=== PATIENT | male | born 1965 | race Caucasian/White ===

== ENCOUNTER 2020-11-15 17:48 | Inpatient (IN) | payer OTHER, SELFPAY ==
[2020-11-15] VITALS (7 sets, daily range): BP systolic 62–132; BP diastolic 31–74; PULSE 73–83; RESP 12–20; TEMP 36.7–36.8; O2SAT 95–100; BMI 32.7
--- NOTE | ~2020-11-15 | CT_ITS ---
EXAMINATION: CT BRAIN W/O DATE: 11/15/2020 19:03 INDICATION: CT dated 01/05/2019 TECHNIQUE: Computed tomography (CT) of the head was performed without intravenous contrast. The dose- length product was 605.33 mGy-cm. Automated exposure control and iterative reconstruction technique w ere employed. COMPARISON: No prior studies for comparison. FINDINGS: Normal brain parenchymal volume for age. Normal chapman-white differentiation. No acute intrac ranial hemorrhage, infarction, mass or mass effect. Study limited by motion artifact. There is cerebe llar atrophy for age. No ventriculomegaly or midline shift. Midline sagittal images demonstrate a normal corpus callosum, c raniovertebral junction and sella turcica. Basilar cisterns are patent. Paranasal sinuses and mastoids are pneumatized. No depressed skull fractures. IMPRESSION: 1. No acute intracranial abnormality. 2: Cerebellar atrophy for age. Reviewed, dictated and finalized at location A.
--- NOTE | ~2020-11-15 | US_ITS ---
EXAMINATION: US renal BI EXAM DATE: 11/16/2020 16:34 INDICATION: Acute kidney insufficiency. TECHNIQUE: Multiple grayscale and Doppler images of the kidneys were obtained (by a technologist who performed the scan) and subsequently reviewed. There is no prior study for comparison. FINDINGS: Right kidney: There is normal contour and echogenicity. It measures 10.0 x 6.4 x 5.0 centimeters. T here are no focal renal lesions identified. There is no hydronephrosis. Left kidney: There is normal contour and echogenicity. It measures 10.1 x 5.6 x 4.9 centimeters. Th ere are no focal renal lesions identified. There is no hydronephrosis. Bladder is collapsed with Webster catheter in position. There is diffuse bladder wall thickening, could indicate chronic cystitis. IMPRESSION: 1. Sonographically unremarkable kidneys. 2. Bladder wall thickening, could indicate chronic cystitis. Webster in position. Reviewed, dictated and finalized at location B. IMPRESSION: 1. Sonographically unremarkable kidneys. 2. Bladder wall thickening, could indicate chronic cystitis. Webster in position .
--- NOTE | ~2020-11-15 | XR_ITS ---
XR chest 1V portable 11/15/2020 18:19 Indication: Weakness. Transient alteration of awareness Procedure: AP portable chest Comparison: 11/03/2018 Findings: Heart size normal. Low lung volumes with crowding of the pulmonary vessels. No focal pneumo ronak, edema, pleural effusion or pneumothorax. Impression: 1: No acute cardiopulmonary disease. Reviewed, dictated and finalized at location A. Impression: 1: No acute cardiopulmonary disease.
--- NOTE | 2020-11-15 18:08 | ECG_ITS ---
Measurements Intervals [place] Rate: 72 P: 63 PA: 178 QRS: 67 QRSD: 123 T: 39 QT: 447 QTc: 490 Interpretive Statements SINUS RHYTHM RIGHT BUNDLE BRANCH BLOCK ST ELEVATION IN DIFFUSE LEADS- PROBABLY EARLY REPOLARIZATION ABNORMALITY BASELINE WANDER- V2 ABNORMAL ECG Electronically Signed On 11-15-2020 20:13:53 CDT by Doron Cabrera D.O.
--- NOTE | 2020-11-15 18:10 | ED.ALCOHOL ---
HPI - Alcohol General Chief Complaint: Alcohol Stated Complaint: ETOH INTOXICATION Time Seen by Provider: 11/15/20 17:52 Source: patient, EMS and RN notes reviewed Mode of arrival: EMS Limitations: intoxication History of Present Illness HPI narrative: This is a 55 year old male with history of bipolar and alcoholism who presents for evaluation of alcohol intoxication. Patient states he has been drinking alcohol today. He states he was walking home but he was unable to make it. HE was found in someone's yard and he was unable to get up. Patient reports he has not eaten in 2 days. He denies headache, chest pain, nausea, vomiting, abdominal pain or sob. He does report weakness. Related Data Home Medications Medication Instructions Recorded Confirmed fluoxetine 40 mg PO DAILY 11/15/20 11/15/20 levothyroxine 100 mcg PO DAILY 11/15/20 11/15/20 lisinopril 20 mg PO DAILY 11/15/20 11/15/20 lithium carbonate 300 mg PO TID 11/15/20 11/15/20 naltrexone 50 mg PO DAILY 11/15/20 11/15/20 nicotine 21 mg TRANSDERMAL DAILY 11/15/20 11/15/20 olanzapine 10 mg PO DAILY 11/15/20 11/15/20 pantoprazole 40 mg PO DAILY 11/15/20 11/15/20 tamsulosin 0.4 mg PO HS 11/15/20 11/15/20 Allergies Allergy/AdvReac Type Severity Reaction Status Date / Time Penicillins Allergy Unknown PATIENT Verified 11/15/20 18:59 UNSURE OF REACTION. Review of Systems Review of Systems: All systems reviewed & are unremarkable except as noted in HPI and below PMFSH Past Medical History Medical History (Updated 11/15/20 @ 21:40 by Karol Chaparro MD) Bipolar disease, chronic Family History Family History Mother Depression Social History Social History (Updated 11/15/20 @ 18:42 by Karol Chaparro MD) Smoking packs per day: 1 Smoking cigarettes per day: 20.0 Years smoked: 30 Smoking pack-years: 30.00 Smoking status: Current every day smoker Tobacco type: cigarettes Alcohol intake: current Drinks per week: 70 Substance use: never Gender identity (if verbalized by the patient): Male Spiritual care concerns: No Exam Const: General: no acute distress and alert Orientation/consciousness: patient oriented x3 HENMT: Head: normocephalic and atraumatic Face and sinus: face symmetric Mouth: Yes lip abnormal (lower lip wound) and Yes other Throat: posterior oropharynx normal, tonsils normal and uvula midline Eyes: Pupils: Equal, round and reactive pupils present EOM: EOMs intact bilaterally Chest: Chest palpation & inspection: normal inspection of the chest Resp: Effort & Inspection: normal respiratory effort and no retractions Auscultation: clear to auscultation bilaterally Cardio: Rate: regular rate Rhythm: regular rhythm Heart sounds: no murmurs GI: GI Palp: Yes Soft to palpation, No Tenderness to palpation present (GI) and No Guarding due to palpation present (GI) Auscultation: normal bowel sounds Skin: General skin exam: normal color Rashes: no rashes Neuro: General: patient oriented x3, moves all extremities and CN's II-XI intact bilaterally Psych: Mental Status: mental status grossly normal Affect: normal affect Course Reevaluation(s) Reevaluation #1: Patient presented with alcohol intoxication and weakness. Patient seems to not have eaten in a couple days and it dehydrated. BP improved after hydration. BP now 102/62. Patient had benavides catheter placed due to acute kidney injury . Nursing staff reports patient was able to urinate 300 ml but bladder scanner showed 500 ml so benavides placed. Date: 11/15/20 Time: 21:35 Consultations Consultation #1: I have discussed case, vitals and labs with DR. Gutierrez. She agrees with management and she accepts patient to IMU. Date: 11/15/20 Time: 21:36 Vital Signs Vital signs: Vital Signs Temperature 98.2 F 11/15/20 18:01 Pulse Rate 80 11/15/20 18:01 Respiratory Rate 12 11/15/20
[2020-11-15] MEDS: SODIUM CHLORIDE 0.9% IV 1,000 ML 999 ML IV CONT ×3 (18:33→20:15)
--- NOTE | 2020-11-15 18:54 | PC.NURSE ---
Dr. Chaparro informed of pts low BP. Fluids started
[2020-11-15 18:59] LABS: Basophils Percent Auto 0.2 % (0.2-1.2); Eosinophils Absolute Auto 0.2 K/mm3 (0-0.3); Eosinophils Percent Auto 1.4 % (0-4.4); Hematocrit 38.4 % (42.0-52.0); Hemoglobin 11.8 g/dL (14.0-18.0); Immature Granulocyte Absolute 0.12 K/mm3 (0.00-0.031); Lymphocytes Absolute Auto 2.39 K/mm3 (0.9-3.2); Lymphocytes Percent Auto 19.9 % (18.3-44.2); Mean Corpuscular HGB Conc 30.7 g/dl (32-36); Mean Corpuscular Hemoglobin 24.5 pg (26-34); Mean Corpuscular Volume 79.8 fl (80-100); Mean Platelet Volume 9.1 fl (7.4-10.4); Monocytes Absolute Auto 0.8 K/mm3 (0.1-0.6); Monocytes Percent Auto 6.7 % (2.6-8.5); Neutrophils Absolute Auto 8.5 K/mm3 (1.3-6.7); Neutrophils Percent Auto 70.8 % (45.5-73.1); Platelet Count Result 347 k/mm3 (150-375); Red Blood Count 4.81 M/mm3 (4.6-6.20); Red Cell Distribution Width 18.4 % (11.5-14.5)
--- NOTE | 2020-11-15 19:03 | PC.NURSE ---
Called pharmacy in regards to pts Thamine bag. Pharmacy in process of making bag.
[2020-11-15 19:08] LABS: Ethanol 201 mg/dL (<10)
[2020-11-15 19:10] LABS: Lactic Acid Reflex 4.5 mmol/L (0.7-2.1)
[2020-11-15] MEDS: THIAMINE HCL INJ 100 MG, FOLIC ACID INJ 1 MG, MULTIVITAMINS-12 INJ VIAL 1 5 ML, MULTIVI... IV CONT (19:14)
[2020-11-15 19:16] LABS: Alanine Aminotransferase 16 U/L (4-50); Albumin Level 4.6 g/dL (3.5-5.1); Alkaline Phosphatase 120 U/L (38-126); Anion Gap 20 mmol/L (8-16); Aspartate Amino Transferase 29 U/L (17-59); Bilirubin,Total 0.4 mg/dL (0.2-1.3); Blood Urea Nitrogen 24 mg/dL (9-20); Calcium 9.5 mg/dL (8.4-10.2); Carbon Dioxide 17 mmol/L (22-30); Chloride 89 mmol/L (98-107); Estimated CRCL calculation 18 ml/min; Estimated Glomerular Filt Rate 16; Glucose 71 mg/dL (75-110); INR 1.1; Magnesium 2.3 mg/dL (1.6-2.3); Potassium 3.9 mmol/L (3.4-5.0); Sodium 126 mmol/L (137-145)
[2020-11-15 19:17] LABS: Partial Thromboplastin Time 29.3 SECONDS (22.3-36.8)
[2020-11-15 20:13] LABS: Lithium 1.6 mmol/L (0.6-1.2)
[2020-11-15 21:11] LABS: Glucose Point of Care 79 mg/dl (65-105)
[2020-11-15] MEDS: SODIUM CHLORIDE 0.9% IV 1,000 ML 125 ML IV CONT (21:44)
[2020-11-15 21:56] LABS: Reflex Lactic Acid Yes or No Add Lactic
[2020-11-15 21:57] LABS: Add Urine Microscopic? YES; Appearance Urine Clear (Clear); Bilirubin Urine Negative (Negative); Blood Urine 1+ (Negative); Color Urine Yellow (Yellow); Glucose Urine UA Negative (Negative); Ketones Urine Negative (Negative); Leukocyte Esterase Ur Negative LEU/UL (Negative); Mucus Urine Rare /lpf; Nitrate Urine Negative (Negative); Protein Urine Negative (Negative); RBC Urine 0-2 /hpf (0-2); Specific Grav Ur 1.006 (1.001-1.035); Urobilinogen Urine Negative mg/dL (<2.0); WBC Urine 0-3 /hpf
[2020-11-15 22:48] LABS: Amphetamine Screen Urine Negative (Negative); Barbiturate Screen Urine Negative (Negative); Benzodiazepines Screen Urine Negative (Negative); Cannabinoid Screen Urine Negative (Negative); Cocaine Screen Urine Negative (Negative); Methadone Screen Urine Negative (Negative); Opiate Screen Urine Negative (Negative); Phencyclidine Screen Urine Negative (Negative)
--- NOTE | 2020-11-15 22:55 | ADMGEN ---
This patient, Jassi Núñez, was admitted to IMU Room 205-01. Patient/family oriented to hospital policies and general routines including ID bracelet, bed and alarms, visiting hours, pain management, procedures, bathroom and other care routines, personal items, smoking policy, room service/diet, and visiting hours. Information on how to activate the Rapid Response Team has been discussed. Patient/Family are encouraged to report perceived risks to care and to ask questions if they do not understand what they are told or what they should do.
[2020-11-15 23:50] LABS: Lactic Acid 2.4 mmol/L (0.7-2.1)
[2020-11-15] MEDS: FAMOTIDINE 20 MG/2 ML VIAL IV PUSH (23:59)
[2020-11-16] VITALS (10 sets, daily range): BP systolic 117–154; BP diastolic 54–87; PULSE 66–82; RESP 16–18; TEMP 36–37.2; O2SAT 92–100
--- NOTE | 2020-11-16 04:40 | PM.IMHP ---
H&P: HPI History of Present Illness Date/Time: 11/16/20 04:40 Chief Complaint: ALTERED MENTAL STATUS Narrative: THIS IS A 55-YEAR-OLD MALE WITH PAST MEDICAL HISTORY SIGNIFICANT FOR BIPOLAR DISORDER, ALCOHOL ABUSE PATIENT STATES THAT HE DRINKS A PT OF [place] DAILY. HE WAS FOUND LAYING ON SOMEONE'S YARD AND WAS UNABLE TO GET UP ON HIS OWN HE WAS BROUGHT TO THE EMERGENCY ROOM HE STATES THAT HE HAD BEEN DRINKING AND HAS NOT EATEN IN ROUGHLY 2 DAYS. PATIENT WAS ALSO NOTED TO HAVE ABDOMINAL DISTENTION AND A BLADDER SCAN SHOWED 800 CC IN THE BLADDER AND TIRADO WAS PLACED THE ROUGHLY 1100 OUT. AT THE TIME OF MY VISIT PATIENT DID DENY ANY DISCOMFORT LIMITED HISTORY DUE TO ALCOHOL INTOXICATION. PRELIMINARY WORKUP WAS SIGNIFICANT FOR A BMP WITH ELEVATED CREATININE, SODIUM [address] 4.[address]. [address] OF THE HEAD WITH NO ACUTE ABNORMALITY CHEST X-RAY WITH NO INFILTRATES. Review of Systems Review of Systems: ROS unobtainable: Yes unobtainable due to medical condition ( ALCOHOL INTOXICATION) PMFSH Past Medical History Medical History (Updated 11/16/20 @ 05:09 by Iftikhar Alonso MD) Bipolar disease, chronic Family History Family History Mother Depression Social History Social History (Updated 11/15/20 @ 18:42 by Karol Chaparro MD) Smoking packs per day: 1 Smoking cigarettes per day: 20.0 Years smoked: 30 Smoking pack-years: 30.00 Smoking status: Current every day smoker Tobacco type: cigarettes Alcohol intake: current Drinks per week: 70 Substance use: never Gender identity (if verbalized by the patient): Male Spiritual care concerns: No Meds Home Medications and Allergies Home Medications Medication Instructions Recorded Confirmed Type fluoxetine 40 mg PO DAILY 11/15/20 11/15/20 History levothyroxine 100 mcg PO DAILY 11/15/20 11/15/20 History lisinopril 20 mg PO DAILY 11/15/20 11/15/20 History lithium carbonate 300 mg PO TID 11/15/20 11/15/20 History naltrexone 50 mg PO DAILY 11/15/20 11/15/20 History nicotine 21 mg TRANSDERMAL DAILY 11/15/20 11/15/20 History olanzapine 10 mg PO DAILY 11/15/20 11/15/20 History pantoprazole 40 mg PO DAILY 11/15/20 11/15/20 History tamsulosin 0.4 mg PO HS 11/15/20 11/15/20 History Allergies Allergy/AdvReac Type Severity Reaction Status Date / Time Penicillins Allergy Unknown PATIENT Verified 11/15/20 18:59 UNSURE OF REACTION. Vital Signs Vital Signs - 24 hr 11/15/20 18:01 11/15/20 18:53 11/15/20 19:18 Temperature 98.2 F Pulse Rate 80 75 Pulse Rate [Bilateral Pedal (Dorsalis Pedis) Palpation] Respiratory Rate 12 20 Blood Pressure 62/31 L 105/55 L 94/60 L Pulse Oximetry 99 95 11/15/20 21:32 11/15/20 22:37 11/15/20 22:45 Temperature Pulse Rate 73 74 74 Pulse Rate [Bilateral Pedal (Dorsalis Pedis) Palpation] Respiratory Rate 18 18 Blood Pressure 102/62 94/52 L 94/52 L Pulse Oximetry 100 95 95 11/15/20 23:05 11/16/20 00:00 11/16/20 02:00 Temperature 98.0 F Pulse Rate 83 77 78 Pulse Rate [Bilateral Pedal (Dorsalis Pedis) Palpation] Respiratory Rate 16 Blood Pressure 132/74 Pulse Oximetry 100 11/16/20 04:00 Temperature 98.4 F Pulse Rate 74 Pulse Rate [Bilateral Pedal (Dorsalis Pedis) Palpation] 74 Respiratory Rate 16 Blood Pressure 117/54 L Pulse Oximetry 92 Exam Const: General: comfortable, no acute distress, well developed, intoxicated appearing, patient obtunded and poor hygiene Nutritional Appearance: average body habitus Orientation/consciousness: patient oriented x3 and Other orientation findings ( PATIENT IS ABLE TO STATE THAT HE IS AT [facility]) Limitations: altered mental status ( ALCOHOL INTOXICATION) HENMT: Head: normal to inspection, normocephalic and atraumatic Ears: hearing grossly normal bilaterally General nose exam: Normal external nose present Face and sinus: normal facial exam Teeth and gingiva: other (
[2020-11-16 04:53] LABS: Basophils Percent Auto 0.2 % (0.2-1.2); Eosinophils Absolute Auto 0.2 K/mm3 (0-0.3); Hematocrit 31.6 % (42.0-52.0); Immature Granulocyte Absolute 0.05 K/mm3 (0.00-0.031); Immature Granulocyte Percent A 0.6 % (0-0.5); Lymphocytes Absolute Auto 1.91 K/mm3 (0.9-3.2); Lymphocytes Percent Auto 21.7 % (18.3-44.2); Mean Corpuscular HGB Conc 31.6 g/dl (32-36); Mean Corpuscular Hemoglobin 24.8 pg (26-34); Mean Corpuscular Volume 78.2 fl (80-100); Mean Platelet Volume 9.1 fl (7.4-10.4); Monocytes Absolute Auto 0.7 K/mm3 (0.1-0.6); Monocytes Percent Auto 8.3 % (2.6-8.5); Neutrophils Absolute Auto 5.9 K/mm3 (1.3-6.7); Neutrophils Percent Auto 67.2 % (45.5-73.1); Platelet Count Result 313 k/mm3 (150-375); Red Blood Count 4.04 M/mm3 (4.6-6.20); Red Cell Distribution Width 18.1 % (11.5-14.5); White Blood Count 8.8 K/mm3 (4.5-10.0)
[2020-11-16 05:05] LABS: Alanine Aminotransferase 16 U/L (4-50); Albumin Level 3.4 g/dL (3.5-5.1); Alkaline Phosphatase 87 U/L (38-126); Anion Gap 6 mmol/L (8-16); Aspartate Amino Transferase 28 U/L (17-59); Bilirubin,Total 0.1 mg/dL (0.2-1.3); Blood Urea Nitrogen 20 mg/dL (9-20); Calcium 8.5 mg/dL (8.4-10.2); Carbon Dioxide 22 mmol/L (22-30); Chloride 106 mmol/L (98-107); Estimated CRCL calculation 38 ml/min; Estimated Glomerular Filt Rate 37; Glucose 105 mg/dL (75-110); Potassium 3.9 mmol/L (3.4-5.0); Sodium 134 mmol/L (137-145)
[2020-11-16] MEDS: THIAMINE HCL INJ 100 MG, FOLIC ACID INJ 1 MG, MULTIVITAMINS-12 INJ VIAL 1 5 ML, MULTIVI... IV CONT (05:49)
[2020-11-16] MEDS: SODIUM CHLORIDE 0.9% IV 1,000 ML 125 ML IV CONT (05:50)
[2020-11-16] MEDS: LEVOTHYROXINE SODIUM 100 MCG TABLET PO (05:53)
[2020-11-16 06:10] LABS: Lithium 1.3 mmol/L (0.6-1.2)
[2020-11-16 06:36] LABS: Magnesium 2.3 mg/dL (1.6-2.3)
[2020-11-16] MEDS: OLANZapine 5 MG TABLET 10 MG PO (08:51)
[2020-11-16] MEDS: FAMOTIDINE 20 MG/2 ML VIAL IV PUSH ×2 (08:52→20:50)
[2020-11-16] MEDS: NICOTINE (*PBKC) 21 MG PATCH 1 PATCH TRANSDERM (08:52)
[2020-11-16] MEDS: FLUoxetine HCL 20 MG CAPSULE 40 MG PO (08:52)
[2020-11-16] MEDS: PANTOPRAZOLE 40 MG TABLET PO (08:53)
[2020-11-16] MEDS: HEPARIN SODIUM 5,000 UNITS/ML VIAL 5000 UNITS SUB-Q ×2 (08:55→20:50)
[2020-11-16 10:40] LABS: Anion Gap 7 mmol/L (8-16); Blood Urea Nitrogen 18 mg/dL (9-20); Calcium 8.6 mg/dL (8.4-10.2); Carbon Dioxide 22 mmol/L (22-30); Chloride 108 mmol/L (98-107); Estimated CRCL calculation 51 ml/min; Estimated Glomerular Filt Rate 53; Glucose 158 mg/dL (75-110); Potassium 3.8 mmol/L (3.4-5.0); Sodium 137 mmol/L (137-145)
[2020-11-16 11:24] LABS: Lithium 1.1 mmol/L (0.6-1.2)
--- NOTE | 2020-11-16 16:24 | P.PNIM_ITS ---
Progress Note: A&P Assessment and Plan (1) Altered mental status: Qualifiers: Altered mental status type: unspecified Qualified Code(s): R41.82 - Altered mental status, unspecified Code(s): R41.82 - Altered mental status, unspecified Status: Resolved Assessment and Plan: * currently alert and oriented * possibly secondary to acute intoxication (2) Leukocytosis: Qualifiers: Leukocytosis type: unspecified Qualified Code(s): D72.829 - Elevated white blood cell count, unspecified Code(s): D72.829 - Elevated white blood cell count, unspecified Status: Resolved Assessment and Plan: * secondary to reactive in nature (3) Hypochromic microcytic anemia: Code(s): D50.9 - Iron deficiency anemia, unspecified Status: Acute Assessment and Plan: * secondary to alcohol use (4) [place] toxicity: Qualifiers: Encounter type: initial encounter Injury intent: accidental or unintentional Qualified Code(s): T56.891A - Toxic effect of other metals, accidental (unintentional), initial encounter Code(s): T56.891A - Toxic effect of other metals, accidental (unintentional), initial encounter Status: Acute Assessment and Plan: * lithium level was elevated to 1.6 on arrival * Creatinine was elevated to 4 * TSH levels within normal limits * lithium levels down 1.1 * Continue to hold lithium, can start with levels of further low (5) Acidosis, lactic: Code(s): E87.2 - Acidosis Status: Acute Assessment and Plan: * will repeat another level in the a.m. (6) Acute dehydration: Code(s): E86.0 - Dehydration Status: Acute (7) Alcohol intoxication: Qualifiers: Complication of substance-induced condition: with unspecified complication Qualified Code(s): F10.929 - Alcohol use, unspecified with intoxication, unspecified Code(s): F10.929 - Alcohol use, unspecified with intoxication, unspecified Status: Acute Assessment and Plan: * Ativan p.r.n. (8) Acute kidney injury: Code(s): N17.9 - Acute kidney failure, unspecified Status: Acute Assessment and Plan: * possibly secondary to urinary retention * Improving (9) Bipolar disorder: Qualifiers: Active/Remission status: remission status unspecified Qualified Code(s): F31.9 - Bipolar disorder, unspecified Code(s): F31.9 - Bipolar disorder, unspecified Status: Acute Assessment and Plan: * hold off on lithium and restart when the levels are much lower than the current (10) Hyponatremia: Code(s): E87.1 - Hypo-osmolality and hyponatremia Status: Acute Assessment and Plan: * concerns for rapid correction overnight from 126-136 in the morning * Started on 0.45% saline and I will still have to be 137 * Will start on D5 water * Will check another BMP now and readjust as needed (11) Urinary retention: Code(s): R33.9 - Retention of urine, unspecified Status: Acute Assessment and Plan: * status post Webster's placement * will need voiding trial * can try tamsulosin Time Spent With Patient Time with patient: 25 - 35 minutes Subjective Date/time seen: 11/16/20 16:24 Interval history: 55-year-old male with past medical history significant for alcohol abuse and bipolar disorder on lithium presented after being found laying down on somebody's yd. It is being managed as a case of alcohol intoxication with impending withdrawal. He
--- NOTE | 2020-11-16 16:24 | PM.IMPN ---
Progress Note: A&P Assessment and Plan (1) Altered mental status: Qualifiers: Altered mental status type: unspecified Qualified Code(s): R41.82 - Altered mental status, unspecified Code(s): R41.82 - Altered mental status, unspecified Status: Resolved Assessment and Plan: currently alert and oriented possibly secondary to acute intoxication (2) Leukocytosis: Qualifiers: Leukocytosis type: unspecified Qualified Code(s): D72.829 - Elevated white blood cell count, unspecified Code(s): D72.829 - Elevated white blood cell count, unspecified Status: Resolved Assessment and Plan: secondary to reactive in nature (3) Hypochromic microcytic anemia: Code(s): D50.9 - Iron deficiency anemia, unspecified Status: Acute Assessment and Plan: secondary to alcohol use (4) [place] toxicity: Qualifiers: Encounter type: initial encounter Injury intent: accidental or unintentional Qualified Code(s): T56.891A - Toxic effect of other metals, accidental (unintentional), initial encounter Code(s): T56.891A - Toxic effect of other metals, accidental (unintentional), initial encounter Status: Acute Assessment and Plan: lithium level was elevated to 1.6 on arrival Creatinine was elevated to 4 TSH levels within normal limits lithium levels down 1.1 Continue to hold lithium, can start with levels of further low (5) Acidosis, lactic: Code(s): E87.2 - Acidosis Status: Acute Assessment and Plan: will repeat another level in the a.m. (6) Acute dehydration: Code(s): E86.0 - Dehydration Status: Acute (7) Alcohol intoxication: Qualifiers: Complication of substance-induced condition: with unspecified complication Qualified Code(s): F10.929 - Alcohol use, unspecified with intoxication, unspecified Code(s): F10.929 - Alcohol use, unspecified with intoxication, unspecified Status: Acute Assessment and Plan: Ativan p.r.n. (8) Acute kidney injury: Code(s): N17.9 - Acute kidney failure, unspecified Status: Acute Assessment and Plan: possibly secondary to urinary retention Improving (9) Bipolar disorder: Qualifiers: Active/Remission status: remission status unspecified Qualified Code(s): F31.9 - Bipolar disorder, unspecified Code(s): F31.9 - Bipolar disorder, unspecified Status: Acute Assessment and Plan: hold off on lithium and restart when the levels are much lower than the current (10) Hyponatremia: Code(s): E87.1 - Hypo-osmolality and hyponatremia Status: Acute Assessment and Plan: concerns for rapid correction overnight from 126-136 in the morning Started on 0.45% saline and I will still have to be 137 Will start on D5 water Will check another BMP now and readjust as needed (11) Urinary retention: Code(s): R33.9 - Retention of urine, unspecified Status: Acute Assessment and Plan: status post Webster's placement will need voiding trial can try tamsulosin Time Spent With Patient Time with patient: 25 - 35 minutes Subjective Date/time seen: 11/16/20 16:24 Interval history: 55-year-old male with past medical history significant for alcohol abuse and bipolar disorder on lithium presented after being found laying down on somebody's yd. It is being managed as a case of alcohol intoxication with impending withdrawal. He also was noted to have elevated lactic acid, COLETTE, urinary retention requiring Webster placement and concerns for lithium toxicity given elevated levels. He was also noted to have Hyponatremia with sodium level of 126. He does have IV fluids, IV thiamine. This morning sodium levels were noted to be 134, which is a very rapid correction. Hence fluids were changed to 0.45 saline. Creatinine appears improved. [place] levels have also
[2020-11-16 17:04] LABS: Anion Gap 6 mmol/L (8-16); Blood Urea Nitrogen 16 mg/dL (9-20); Calcium 8.7 mg/dL (8.4-10.2); Carbon Dioxide 22 mmol/L (22-30); Chloride 108 mmol/L (98-107); Estimated CRCL calculation 55 ml/min; Estimated Glomerular Filt Rate 57; Glucose 127 mg/dL (75-110); Potassium 3.7 mmol/L (3.4-5.0); Sodium 136 mmol/L (137-145)
[2020-11-16] MEDS: SODIUM CHLORIDE 0.45% 1,000 ML 150 ML IV CONT (17:45)
--- NOTE | 2020-11-16 18:36 | PC.NURSE ---
This patient, Jassi Núñez, was transferred to [facility] on 11/16/20 at 1820. Personal belongings sent with patient. Report given to Vani CULLEN. Appropriate documentation sent with patient.
--- NOTE | 2020-11-16 18:52 | PC.NURSE ---
Received patient from IMU room 205. Patient settled in room. No distress noted. No c/o pain. Patient eating supper tray without difficulty. Awake and alert. Will continue to monitor.
[2020-11-16] MEDS: TAMSULOSIN HCL 0.4 MG CAPSULE PO (20:51)
[2020-11-16 21:31] LABS: Anion Gap 5 mmol/L (8-16); Blood Urea Nitrogen 14 mg/dL (9-20); Calcium 8.8 mg/dL (8.4-10.2); Carbon Dioxide 23 mmol/L (22-30); Chloride 111 mmol/L (98-107); Estimated CRCL calculation 55 ml/min; Estimated Glomerular Filt Rate 57; Glucose 109 mg/dL (75-110); Potassium 3.9 mmol/L (3.4-5.0); Sodium 139 mmol/L (137-145)
[2020-11-16] MEDS: DEXTROSE 5% IN WATER 500 ML 100 ML IV CONT (22:15)
[2020-11-17] VITALS: PULSE 60
[2020-11-17 04:00] VITALS: PULSE 64
[2020-11-17] MEDS: LEVOTHYROXINE SODIUM 100 MCG TABLET PO (05:29)
[2020-11-17 05:43] LABS: Basophils Percent Auto 0.4 % (0.2-1.2); Eosinophils Absolute Auto 0.1 K/mm3 (0-0.3); Eosinophils Percent Auto 1.4 % (0-4.4); Hematocrit 31.3 % (42.0-52.0); Hemoglobin 9.7 g/dL (14.0-18.0); Immature Granulocyte Absolute 0.03 K/mm3 (0.00-0.031); Immature Granulocyte Percent A 0.4 % (0-0.5); Lymphocytes Absolute Auto 2.73 K/mm3 (0.9-3.2); Mean Corpuscular Hemoglobin 25.1 pg (26-34); Mean Corpuscular Volume 80.9 fl (80-100); Mean Platelet Volume 9.5 fl (7.4-10.4); Monocytes Absolute Auto 0.6 K/mm3 (0.1-0.6); Monocytes Percent Auto 6.4 % (2.6-8.5); Neutrophils Absolute Auto 5.1 K/mm3 (1.3-6.7); Neutrophils Percent Auto 59.4 % (45.5-73.1); Platelet Count Result 259 k/mm3 (150-375); Red Blood Count 3.87 M/mm3 (4.6-6.20); Red Cell Distribution Width 19.1 % (11.5-14.5); White Blood Count 8.5 K/mm3 (4.5-10.0)
[2020-11-17 06:00] VITALS: BP 128/68; PULSE 57; RESP 20; TEMP 36.4; O2SAT 98
[2020-11-17 06:00] LABS: Alanine Aminotransferase 25 U/L (4-50); Albumin Level 3.1 g/dL (3.5-5.1); Alkaline Phosphatase 86 U/L (38-126); Anion Gap 7 mmol/L (8-16); Aspartate Amino Transferase 39 U/L (17-59); Bilirubin,Total 0.2 mg/dL (0.2-1.3); Blood Urea Nitrogen 12 mg/dL (9-20); Calcium 8.8 mg/dL (8.4-10.2); Carbon Dioxide 22 mmol/L (22-30); Chloride 109 mmol/L (98-107); Creatine Kinase 155 U/L (55-170); Estimated CRCL calculation 64 ml/min; Estimated Glomerular Filt Rate > 60; Glucose 89 mg/dL (75-110); Potassium 3.8 mmol/L (3.4-5.0); Sodium 138 mmol/L (137-145)
[2020-11-17] MEDS: FLUoxetine HCL 20 MG CAPSULE 40 MG PO (08:53)
[2020-11-17] MEDS: NICOTINE (*PBKC) 21 MG PATCH 1 PATCH TRANSDERM (08:53)
[2020-11-17] MEDS: FAMOTIDINE 20 MG/2 ML VIAL IV PUSH (08:53)
[2020-11-17] MEDS: HEPARIN SODIUM 5,000 UNITS/ML VIAL 5000 UNITS SUB-Q ×2 (08:53→19:46)
[2020-11-17] MEDS: PANTOPRAZOLE 40 MG TABLET PO (08:54)
[2020-11-17] MEDS: OLANZapine 5 MG TABLET 10 MG PO (08:54)
[2020-11-17 14:00] VITALS: BP 144/103; PULSE 74; RESP 20; TEMP 36.6; O2SAT 100
--- NOTE | 2020-11-17 18:28 | P.PNIM_ITS ---
Progress Note: A&P Assessment and Plan (1) Altered mental status: Qualifiers: Altered mental status type: unspecified Qualified Code(s): R41.82 - Altered mental status, unspecified Code(s): R41.82 - Altered mental status, unspecified Status: Resolved Assessment and Plan: * currently alert and oriented * possibly secondary to acute intoxication, COLETTE, Li toxicity, dehydration (2) Leukocytosis: Qualifiers: Leukocytosis type: unspecified Qualified Code(s): D72.829 - Elevated white blood cell count, unspecified Code(s): D72.829 - Elevated white blood cell count, unspecified Status: Resolved Assessment and Plan: * REACTIVE AND RESOLVED (3) Hypochromic microcytic anemia: Code(s): D50.9 - Iron deficiency anemia, unspecified Status: Acute Assessment and Plan: * secondary to alcohol use (4) [place] toxicity: Qualifiers: Encounter type: initial encounter Injury intent: accidental or unintentional Qualified Code(s): T56.891A - Toxic effect of other metals, accidental (unintentional), initial encounter Code(s): T56.891A - Toxic effect of other metals, accidental (unintentional), initial encounter Status: Acute Assessment and Plan: * lithium level was elevated to 1.6 on arrival * Creatinine was elevated to 4 * TSH levels within normal limits * lithium levels down 1.1 * 11/17 Resume Li (5) Alcohol intoxication: Qualifiers: Complication of substance-induced condition: with unspecified complication Qualified Code(s): F10.929 - Alcohol use, unspecified with intoxication, unspecified Code(s): F10.929 - Alcohol use, unspecified with intoxication, unspecified Status: Acute Assessment and Plan: * Ativan p.r.n. per CIWA (6) Acute kidney injury: Code(s): N17.9 - Acute kidney failure, unspecified Status: Acute Assessment and Plan: * possibly secondary to urinary retention, dehydration * RESOLVED (7) Bipolar disorder: Qualifiers: Active/Remission status: remission status unspecified Qualified Code(s): F31.9 - Bipolar disorder, unspecified Code(s): F31.9 - Bipolar disorder, unspecified Status: Acute Assessment and Plan: * Continue home regimen for schizoaffective disorder (8) Hyponatremia: Code(s): E87.1 - Hypo-osmolality and hyponatremia Status: Acute Assessment and Plan: * RESOLVED (9) Urinary retention: Code(s): R33.9 - Retention of urine, unspecified Status: Acute Assessment and Plan: * 11/17 increase tamsulosin to bid * consider voiding trial in 48 hours (10) Acidosis, lactic: Code(s): E87.2 - Acidosis Status: Acute Assessment and Plan: * will repeat another level in the a.m. (11) Acute dehydration: Code(s): E86.0 - Dehydration Status: Acute Assessment and Plan: RESOLVED Subjective Date/time seen: 11/17/20 18:28 Interval history: 55-year-old male with past medical history significant for alcohol abuse and bipolar disorder on lithium presented after being found laying down on somebody's yd. It is being managed as a case of alcohol intoxication with impending withdrawal. He also was noted to have elevated lactic acid, COLETTE, urinary retention requiring Webster placement and concerns for lithium toxicity given elevated levels. He was also noted to have Hyponatremia with sodium level of 126. 11/17: Tolerating diet. Webster still in place. Now has
--- NOTE | 2020-11-17 18:28 | PM.IMPN ---
Progress Note: A&P Assessment and Plan (1) Altered mental status: Qualifiers: Altered mental status type: unspecified Qualified Code(s): R41.82 - Altered mental status, unspecified Code(s): R41.82 - Altered mental status, unspecified Status: Resolved Assessment and Plan: currently alert and oriented possibly secondary to acute intoxication, COLETTE, Li toxicity, dehydration (2) Leukocytosis: Qualifiers: Leukocytosis type: unspecified Qualified Code(s): D72.829 - Elevated white blood cell count, unspecified Code(s): D72.829 - Elevated white blood cell count, unspecified Status: Resolved Assessment and Plan: REACTIVE AND RESOLVED (3) Hypochromic microcytic anemia: Code(s): D50.9 - Iron deficiency anemia, unspecified Status: Acute Assessment and Plan: secondary to alcohol use (4) [place] toxicity: Qualifiers: Encounter type: initial encounter Injury intent: accidental or unintentional Qualified Code(s): T56.891A - Toxic effect of other metals, accidental (unintentional), initial encounter Code(s): T56.891A - Toxic effect of other metals, accidental (unintentional), initial encounter Status: Acute Assessment and Plan: lithium level was elevated to 1.6 on arrival Creatinine was elevated to 4 TSH levels within normal limits lithium levels down 1.1 11/17 Resume Li (5) Alcohol intoxication: Qualifiers: Complication of substance-induced condition: with unspecified complication Qualified Code(s): F10.929 - Alcohol use, unspecified with intoxication, unspecified Code(s): F10.929 - Alcohol use, unspecified with intoxication, unspecified Status: Acute Assessment and Plan: Ativan p.r.n. per MAN (6) Acute kidney injury: Code(s): N17.9 - Acute kidney failure, unspecified Status: Acute Assessment and Plan: possibly secondary to urinary retention, dehydration RESOLVED (7) Bipolar disorder: Qualifiers: Active/Remission status: remission status unspecified Qualified Code(s): F31.9 - Bipolar disorder, unspecified Code(s): F31.9 - Bipolar disorder, unspecified Status: Acute Assessment and Plan: Continue home regimen for schizoaffective disorder (8) Hyponatremia: Code(s): E87.1 - Hypo-osmolality and hyponatremia Status: Acute Assessment and Plan: RESOLVED (9) Urinary retention: Code(s): R33.9 - Retention of urine, unspecified Status: Acute Assessment and Plan: 11/17 increase tamsulosin to bid consider voiding trial in 48 hours (10) Acidosis, lactic: Code(s): E87.2 - Acidosis Status: Acute Assessment and Plan: will repeat another level in the a.m. (11) Acute dehydration: Code(s): E86.0 - Dehydration Status: Acute Assessment and Plan: RESOLVED Subjective Date/time seen: 11/17/20 18:28 Interval history: 55-year-old male with past medical history significant for alcohol abuse and bipolar disorder on lithium presented after being found laying down on somebody's yd. It is being managed as a case of alcohol intoxication with impending withdrawal. He also was noted to have elevated lactic acid, COLETTE, urinary retention requiring Webster placement and concerns for lithium toxicity given elevated levels. He was also noted to have Hyponatremia with sodium level of 126. 11/17: Tolerating diet. Webster still in place. Now has nowhere to go upon discharge. Brother will not allow him back to brother's home. Review of Systems Review of Systems: All systems reviewed & are unremarkable except as noted in HPI and below Exam Narrative: Exam Narrative: HEENT: PERRL, sclerae nonicteric, pharyngeal mucosa pink and intact NECK: No JVD CHEST: Clear to auscultation. Normal effort. HEART: NL S1/S2, regular, no murmur ABDOMEN: BS+, soft, nonten
[2020-11-17] MEDS: TAMSULOSIN HCL 0.4 MG CAPSULE PO (19:46)
[2020-11-17 20:00] VITALS: PULSE 66
[2020-11-17 21:53] VITALS: BP 141/82; PULSE 66; RESP 18; TEMP 37.1; O2SAT 99
[2020-11-18] VITALS: PULSE 61
[2020-11-18 04:00] VITALS: PULSE 66
[2020-11-18] MEDS: LEVOTHYROXINE SODIUM 100 MCG TABLET PO (05:52)
[2020-11-18 06:00] VITALS: BP 147/76; PULSE 68; RESP 20; TEMP 36.9; O2SAT 97
[2020-11-18 07:47] LABS: Hematocrit 33.7 % (42.0-52.0); Hemoglobin 10.4 g/dL (14.0-18.0); Mean Corpuscular HGB Conc 30.9 g/dl (32-36); Mean Corpuscular Hemoglobin 25.2 pg (26-34); Mean Corpuscular Volume 81.8 fl (80-100); Mean Platelet Volume 9.5 fl (7.4-10.4); Platelet Count Result 249 k/mm3 (150-375); Red Blood Count 4.12 M/mm3 (4.6-6.20); Red Cell Distribution Width 19.6 % (11.5-14.5); White Blood Count 9.1 K/mm3 (4.5-10.0)
[2020-11-18 07:49] LABS: Alanine Aminotransferase 23 U/L (4-50); Albumin Level 3.5 g/dL (3.5-5.1); Alkaline Phosphatase 84 U/L (38-126); Anion Gap 4 mmol/L (8-16); Aspartate Amino Transferase 28 U/L (17-59); Bilirubin,Total 0.1 mg/dL (0.2-1.3); Blood Urea Nitrogen 13 mg/dL (9-20); Calcium 9.1 mg/dL (8.4-10.2); Carbon Dioxide 25 mmol/L (22-30); Chloride 112 mmol/L (98-107); Estimated CRCL calculation 61 ml/min; Estimated Glomerular Filt Rate > 60; Glucose 95 mg/dL (75-110); Magnesium 1.6 mg/dL (1.6-2.3); Potassium 4.5 mmol/L (3.4-5.0); Sodium 141 mmol/L (137-145)
--- NOTE | 2020-11-18 07:50 | PC.NURSE ---
Called pharmacy for missing 0900 dose of [place] Carbonate.
[2020-11-18 08:00] LABS: Iron 24 ug/dL (49-181)
[2020-11-18 08:01] LABS: Percent Iron Saturation 7 % (20-50)
--- NOTE | 2020-11-18 09:35 | PC.NURSE ---
Second call to pharmacy was placed for missing 0900 dose of [place] Carbonate.
[2020-11-18] MEDS: THIAMINE HCL 100 MG TABLET PO (09:42)
[2020-11-18] MEDS: FLUoxetine HCL 20 MG CAPSULE 40 MG PO (09:42)
[2020-11-18] MEDS: FOLIC ACID 1 MG TABLET PO (09:42)
[2020-11-18] MEDS: OLANZapine 5 MG TABLET 10 MG PO (09:42)
[2020-11-18] MEDS: TAMSULOSIN HCL 0.4 MG CAPSULE PO ×2 (09:42→20:04)
[2020-11-18] MEDS: PANTOPRAZOLE 40 MG TABLET PO (09:42)
[2020-11-18] MEDS: HEPARIN SODIUM 5,000 UNITS/ML VIAL 5000 UNITS SUB-Q ×2 (09:43→20:04)
[2020-11-18] MEDS: NICOTINE (*PBKC) 21 MG PATCH 1 PATCH TRANSDERM (09:43)
[2020-11-18] MEDS: LITHIUM CARBONATE 300 MG CAPSULE PO ×3 (09:44→16:01)
--- NOTE | 2020-11-18 11:50 | PC.NURSE ---
Called pharmacy for missing 1200 dose of [place] Carbonate.
--- NOTE | 2020-11-18 12:37 | P.PNIM_ITS ---
Progress Note: A&P Assessment and Plan (1) Altered mental status: Qualifiers: Altered mental status type: unspecified Qualified Code(s): R41.82 - Altered mental status, unspecified Code(s): R41.82 - Altered mental status, unspecified Status: Resolved Assessment and Plan: * currently alert and oriented * possibly secondary to acute intoxication, COLETTE, Li toxicity, dehydration (2) Iron deficiency anemia: Qualifiers: Iron deficiency anemia type: unspecified iron deficiency Qualified Code(s): D50.9 - Iron deficiency anemia, unspecified Code(s): D50.9 - Iron deficiency anemia, unspecified Status: Acute Assessment and Plan: Suspect GI losses If stool negative for blood, consider sprue eval, if positive, then GI eval Needs screening colon as outpatient (3) Leukocytosis: Qualifiers: Leukocytosis type: unspecified Qualified Code(s): D72.829 - Elevated white blood cell count, unspecified Code(s): D72.829 - Elevated white blood cell count, unspecified Status: Resolved Assessment and Plan: * REACTIVE AND RESOLVED (4) Hypochromic microcytic anemia: Code(s): D50.9 - Iron deficiency anemia, unspecified Status: Acute Assessment and Plan: * secondary to alcohol use (5) [place] toxicity: Qualifiers: Encounter type: initial encounter Injury intent: accidental or unintentional Qualified Code(s): T56.891A - Toxic effect of other metals, accidental (unintentional), initial encounter Code(s): T56.891A - Toxic effect of other metals, accidental (unintentional), initial encounter Status: Acute Assessment and Plan: * lithium level was elevated to 1.6 on arrival * Creatinine was elevated to 4 * TSH levels within normal limits * lithium levels down 1.1 * 11/17 Resume Li (6) Alcohol intoxication: Qualifiers: Complication of substance-induced condition: with unspecified complication Qualified Code(s): F10.929 - Alcohol use, unspecified with intoxication, unspecified Code(s): F10.929 - Alcohol use, unspecified with intoxication, unspecified Status: Acute Assessment and Plan: * Ativan p.r.n. per CIWA (7) Acute kidney injury: Code(s): N17.9 - Acute kidney failure, unspecified Status: Acute Assessment and Plan: * possibly secondary to urinary retention, dehydration * RESOLVED (8) Bipolar disorder: Qualifiers: Active/Remission status: remission status unspecified Qualified Code(s): F31.9 - Bipolar disorder, unspecified Code(s): F31.9 - Bipolar disorder, unspecified Status: Acute Assessment and Plan: * Continue home regimen for schizoaffective disorder (9) Hyponatremia: Code(s): E87.1 - Hypo-osmolality and hyponatremia Status: Acute Assessment and Plan: * RESOLVED (10) Urinary retention: Code(s): R33.9 - Retention of urine, unspecified Status: Acute Assessment and Plan: * 11/17 increase tamsulosin to bid * consider voiding trial in 48 hours (11) Acidosis, lactic: Code(s): E87.2 - Acidosis Status: Acute Assessment and Plan: * will repeat another level in the a.m. (12) Acute dehydration: Code(s): E86.0 - Dehydration Status: Acute Assessment and Plan: RESOLVED Subjective Date/time seen: 11/18/20 12:37 Interval history: 55-year-old male with past medical history significant for alcohol abuse and b
--- NOTE | 2020-11-18 12:37 | PM.IMPN ---
Progress Note: A&P Assessment and Plan (1) Altered mental status: Qualifiers: Altered mental status type: unspecified Qualified Code(s): R41.82 - Altered mental status, unspecified Code(s): R41.82 - Altered mental status, unspecified Status: Resolved Assessment and Plan: currently alert and oriented possibly secondary to acute intoxication, COLETTE, Li toxicity, dehydration (2) Iron deficiency anemia: Qualifiers: Iron deficiency anemia type: unspecified iron deficiency Qualified Code(s): D50.9 - Iron deficiency anemia, unspecified Code(s): D50.9 - Iron deficiency anemia, unspecified Status: Acute Assessment and Plan: Suspect GI losses If stool negative for blood, consider sprue eval, if positive, then GI eval Needs screening colon as outpatient (3) Leukocytosis: Qualifiers: Leukocytosis type: unspecified Qualified Code(s): D72.829 - Elevated white blood cell count, unspecified Code(s): D72.829 - Elevated white blood cell count, unspecified Status: Resolved Assessment and Plan: REACTIVE AND RESOLVED (4) Hypochromic microcytic anemia: Code(s): D50.9 - Iron deficiency anemia, unspecified Status: Acute Assessment and Plan: secondary to alcohol use (5) [place] toxicity: Qualifiers: Encounter type: initial encounter Injury intent: accidental or unintentional Qualified Code(s): T56.891A - Toxic effect of other metals, accidental (unintentional), initial encounter Code(s): T56.891A - Toxic effect of other metals, accidental (unintentional), initial encounter Status: Acute Assessment and Plan: lithium level was elevated to 1.6 on arrival Creatinine was elevated to 4 TSH levels within normal limits lithium levels down 1.1 710 Resume Li (6) Alcohol intoxication: Qualifiers: Complication of substance-induced condition: with unspecified complication Qualified Code(s): F10.929 - Alcohol use, unspecified with intoxication, unspecified Code(s): F10.929 - Alcohol use, unspecified with intoxication, unspecified Status: Acute Assessment and Plan: Ativan p.r.n. per IVANAND (7) Acute kidney injury: Code(s): N17.9 - Acute kidney failure, unspecified Status: Acute Assessment and Plan: possibly secondary to urinary retention, dehydration RESOLVED (8) Bipolar disorder: Qualifiers: Active/Remission status: remission status unspecified Qualified Code(s): F31.9 - Bipolar disorder, unspecified Code(s): F31.9 - Bipolar disorder, unspecified Status: Acute Assessment and Plan: Continue home regimen for schizoaffective disorder (9) Hyponatremia: Code(s): E87.1 - Hypo-osmolality and hyponatremia Status: Acute Assessment and Plan: RESOLVED (10) Urinary retention: Code(s): R33.9 - Retention of urine, unspecified Status: Acute Assessment and Plan: 11/17 increase tamsulosin to bid consider voiding trial in 48 hours (11) Acidosis, lactic: Code(s): E87.2 - Acidosis Status: Acute Assessment and Plan: will repeat another level in the a.m. (12) Acute dehydration: Code(s): E86.0 - Dehydration Status: Acute Assessment and Plan: RESOLVED Subjective Date/time seen: 11/18/20 12:37 Interval history: 55-year-old male with past medical history significant for alcohol abuse and bipolar disorder on lithium presented after being found laying down on somebody's yd. It is being managed as a case of alcohol intoxication with impending withdrawal. He also was noted to have elevated lactic acid, COLETTE, urinary retention requiring Webster placement and concerns for lithium toxicity given elevated levels. He was also noted to have Hyponatremia with sodium level of 126. 7/: Tolerating diet. Webster still in place. Homeless. Car
--- NOTE | 2020-11-18 12:55 | PC.NURSE ---
Second call to pharmacy for missing 1200 dose of [place] Carbonate.
[2020-11-18 14:00] VITALS: BP 153/84; PULSE 68; RESP 20; TEMP 36.9; O2SAT 100
[2020-11-18 21:16] VITALS: BP 139/80; PULSE 75; RESP 16; TEMP 37; O2SAT 97
[2020-11-19 05:00] VITALS: BP 136/82; PULSE 56; RESP 16; TEMP 36.8; O2SAT 97
[2020-11-19] MEDS: LEVOTHYROXINE SODIUM 100 MCG TABLET PO (05:34)
[2020-11-19] MEDS: OLANZapine 5 MG TABLET 10 MG PO (09:05)
[2020-11-19] MEDS: LITHIUM CARBONATE 300 MG CAPSULE PO ×3 (09:05→16:43)
[2020-11-19] MEDS: FLUoxetine HCL 20 MG CAPSULE 40 MG PO (09:05)
[2020-11-19] MEDS: PANTOPRAZOLE 40 MG TABLET PO (09:05)
[2020-11-19] MEDS: FOLIC ACID 1 MG TABLET PO (09:06)
[2020-11-19] MEDS: THIAMINE HCL 100 MG TABLET PO (09:06)
[2020-11-19] MEDS: TAMSULOSIN HCL 0.4 MG CAPSULE PO ×2 (09:06→20:13)
[2020-11-19] MEDS: HEPARIN SODIUM 5,000 UNITS/ML VIAL 5000 UNITS SUB-Q ×2 (09:51→20:13)
[2020-11-19] MEDS: NICOTINE (*PBKC) 21 MG PATCH 1 PATCH TRANSDERM (09:52)
[2020-11-19 13:00] VITALS: BP 146/78; PULSE 97; RESP 20; TEMP 36.7; O2SAT 98
[2020-11-19 13:39] LABS: IFOB Positive Control Positive; Immunochemical Fecal Occult Bl Negative (N)
[2020-11-19] MEDS: MAGNESIUM SULF 2 GM/WATER 50ML 2 GM/50 ML BAG IVPB (16:42)
--- NOTE | 2020-11-19 17:00 | PM.IMPN ---
Progress Note: A&P Assessment and Plan (1) [place] toxicity: Qualifiers: Encounter type: initial encounter Injury intent: accidental or unintentional Qualified Code(s): T56.891A - Toxic effect of other metals, accidental (unintentional), initial encounter Code(s): T56.891A - Toxic effect of other metals, accidental (unintentional), initial encounter Status: Acute Assessment and Plan: lithium level was elevated to 1.6 on arrival Creatinine was elevated to 4 TSH levels within normal limits lithium levels down 1.1 11/17 lithium carbonate was resumed. will check level in the morning (2) Acute kidney injury: Code(s): N17.9 - Acute kidney failure, unspecified Status: Acute Assessment and Plan: possibly secondary to urinary retention, dehydration RESOLVED Webster removed and monitor replace low magnesium (3) Acute dehydration: Code(s): E86.0 - Dehydration Status: Acute Assessment and Plan: RESOLVED (4) Alcohol intoxication: Qualifiers: Complication of substance-induced condition: with unspecified complication Qualified Code(s): F10.929 - Alcohol use, unspecified with intoxication, unspecified Code(s): F10.929 - Alcohol use, unspecified with intoxication, unspecified Status: Acute Assessment and Plan: resolved now. monitor for signs of withdrawal.. Ativan p.r.n. per MAN (5) Altered mental status: Qualifiers: Altered mental status type: unspecified Qualified Code(s): R41.82 - Altered mental status, unspecified Code(s): R41.82 - Altered mental status, unspecified Status: Resolved Assessment and Plan: resolved now it was secondary to acute intoxication, COLETTE, Li toxicity, dehydration (6) Iron deficiency anemia: Qualifiers: Iron deficiency anemia type: unspecified iron deficiency Qualified Code(s): D50.9 - Iron deficiency anemia, unspecified Code(s): D50.9 - Iron deficiency anemia, unspecified Status: Acute Assessment and Plan: Suspect GI losses stool negative for blood Needs screening colon as outpatient (7) Leukocytosis: Qualifiers: Leukocytosis type: unspecified Qualified Code(s): D72.829 - Elevated white blood cell count, unspecified Code(s): D72.829 - Elevated white blood cell count, unspecified Status: Resolved Assessment and Plan: REACTIVE AND RESOLVED (8) Hypochromic microcytic anemia: Code(s): D50.9 - Iron deficiency anemia, unspecified Status: Acute Assessment and Plan: check ferritin level (9) Bipolar disorder: Qualifiers: Active/Remission status: remission status unspecified Qualified Code(s): F31.9 - Bipolar disorder, unspecified Code(s): F31.9 - Bipolar disorder, unspecified Status: Acute Assessment and Plan: Continue home regimen for schizoaffective disorder (10) Hyponatremia: Code(s): E87.1 - Hypo-osmolality and hyponatremia Status: Acute Assessment and Plan: RESOLVED (11) Urinary retention: Code(s): R33.9 - Retention of urine, unspecified Status: Acute Assessment and Plan: 11/17 increase tamsulosin to bid Webster removed and voiding trial Additional Plan heparin subcu for DVT prophylaxis Subjective Date/time seen: 11/19/20 17:00 no new complaint today. Requesting Webster to be removed. Appetite is good and eating adequately. denies any suicidal homicidal ideation. he told me he was drinking a 5th of vodka every day All other systems were reviewed and were negative Review of Systems Review of Systems: All systems reviewed & are unremarkable except as noted in HPI and below ( subjective) Exam Narrative: Exam Narrative: General: Pt is alert awake and in NAD Lungs/Chest: Trachea central Clear BS B/L, No crackles or wheezing. Cardiac: RRR. Normal S1 S2. No murmurs
[2020-11-19 20:00] VITALS: PULSE 69; RESP 20; O2SAT 96
[2020-11-19 20:41] VITALS: BP 108/67; PULSE 69; RESP 20; TEMP 36.8; O2SAT 96
[2020-11-20 04:28] VITALS: BP 128/81; PULSE 84; RESP 20; TEMP 36.1; O2SAT 96
[2020-11-20] MEDS: LEVOTHYROXINE SODIUM 100 MCG TABLET PO (06:01)
[2020-11-20 06:32] LABS: Lithium 0.7 mmol/L (0.6-1.2)
[2020-11-20] MEDS: NICOTINE (*PBKC) 21 MG PATCH 1 PATCH TRANSDERM (08:05)
[2020-11-20] MEDS: FOLIC ACID 1 MG TABLET PO (08:06)
[2020-11-20] MEDS: PANTOPRAZOLE 40 MG TABLET PO (08:06)
[2020-11-20] MEDS: TAMSULOSIN HCL 0.4 MG CAPSULE PO (08:06)
[2020-11-20] MEDS: LITHIUM CARBONATE 300 MG CAPSULE PO ×2 (08:07→11:43)
[2020-11-20] MEDS: THIAMINE HCL 100 MG TABLET PO (08:07)
[2020-11-20] MEDS: FLUoxetine HCL 20 MG CAPSULE 40 MG PO (08:07)
[2020-11-20] MEDS: OLANZapine 5 MG TABLET 10 MG PO (08:07)
[2020-11-20] MEDS: HEPARIN SODIUM 5,000 UNITS/ML VIAL 5000 UNITS SUB-Q (09:33)
--- NOTE | 2020-11-20 12:05 | PM.DS ---
DS: Admitting Diagnosis Admitting Diagnosis Admitting Diagnosis: altered mental status DS: Discharge Diagnosis Discharge Diagnosis (1) Altered mental status: Qualifiers: Altered mental status type: unspecified Qualified Code(s): R41.82 - Altered mental status, unspecified Code(s): R41.82 - Altered mental status, unspecified Status: Resolved Assessment and Plan: The patient had mildly elevated lithium levels when he was 1st admitted as well as dehydration and acute renal failure. Those are RO resolved now. Patient is awake and talking. The patient is to be discharged to [facility] today. The patient also had an elevated alcohol level when he was admitted. Patient admitted to drinking approximately a pt of vodka a day. Unsure if patient has been taking his medications properly. (2) [place] toxicity: Qualifiers: Encounter type: initial encounter Injury intent: accidental or unintentional Qualified Code(s): T56.891A - Toxic effect of other metals, accidental (unintentional), initial encounter Code(s): T56.891A - Toxic effect of other metals, accidental (unintentional), initial encounter Status: Acute Assessment and Plan: Initially patient's lithium levels 1.3 and is now 0.7 his lithium was resumed. (3) Acute dehydration: Code(s): E86.0 - Dehydration Status: Acute Assessment and Plan: The patient was hydrated. The patient had not ate or drank anything for 2 days prior to his admission. The patient was hydrated this admission and his BUN creatinine are normal. (4) Urinary retention: Code(s): R33.9 - Retention of urine, unspecified Status: Acute Assessment and Plan: The patient had a Webster catheter and that was removed and they did 14 trials and he is voiding without difficulty. (5) Acute kidney injury: Code(s): N17.9 - Acute kidney failure, unspecified Status: Acute Assessment and Plan: BUN and creatinine are within normal limits. (6) Alcohol intoxication: Qualifiers: Complication of substance-induced condition: with unspecified complication Qualified Code(s): F10.929 - Alcohol use, unspecified with intoxication, unspecified Code(s): F10.929 - Alcohol use, unspecified with intoxication, unspecified Status: Acute Assessment and Plan: The patient was placed on folic acid and thiamin. He was given p.r.n. Ativan as well. The patient is being discharged to [facility]. (7) Bipolar disorder: Qualifiers: Active/Remission status: remission status unspecified Qualified Code(s): F31.9 - Bipolar disorder, unspecified Code(s): F31.9 - Bipolar disorder, unspecified Status: Acute Assessment and Plan: [place] was restarted. Continued with Prozac. (8) High anion gap metabolic acidosis: Code(s): E87.2 - Acidosis Status: Acute Assessment and Plan: Resolved (9) Hyponatremia: Code(s): E87.1 - Hypo-osmolality and hyponatremia Status: Acute Assessment and Plan: sodium back to normal. The patient has a history of alcoholism. DS: Summary Hospital Course Hospital Course: this is a 55-year-old male patient who has a history of bipolar disorder, and alcoholism. The patient was brought into the emergency room on the date of arrival due to altered mental status. The patient had been drinking alcohol for 2 days and had not been eating or drinking anything else. The patient stated that he drinks approximately a pt of alcohol a day. The patient stated that he has not been taking any medication at home. And he has not been getting his medications filled to the pharmacy.However his lithium level was 1.3 upon arrival. Which is now normal.The patient was also having difficulty urinating and a Webster catheter was placed. His Flomax was increased to twice a day. The Webster catheter was removed and a voiding trial was ini
[2020-11-20 14:00] VITALS: BP 109/60; PULSE 93; RESP 18; TEMP 37.2; O2SAT 99
== END 2020-11-20 16:23 | disposition home or self-care (01) | DRG 422 ==
LOC: ANHED 21:40 → ANHIMU 11-16 06:29 → ANH2MED 11-17 14:39 → ANHIMU 11-21 15:10
PROVIDERS: Internal Medicine; Admitting Provider Internal Medicine; Emergency Provider General Practice; PCP Internal Medicine; Visit Provider Internal Medicine
DX: E86.0 Dehydration; F10.929 Alcohol use, unspecified with intoxication, unspecified; E87.1 Hypo-osmolality and hyponatremia; T56.891A Toxic effect of other metals, accidental (unintentional), initial encounter; E87.2 Acidosis; N17.9 Acute kidney failure, unspecified; R41.82 Altered mental status, unspecified; R33.9 Retention of urine, unspecified; F31.9 Bipolar disorder, unspecified; F17.210 Nicotine dependence, cigarettes, uncomplicated; D72.829 Elevated white blood cell count, unspecified; D50.9 Iron deficiency anemia, unspecified; Z79.899 Other long term (current) drug therapy; Z88.0 Allergy status to penicillin
CPT/HCPCS: 36415; 70450; 71045; 76775; 80048; 80053; 80178; 80307; 81001; 82274; 82550; 82948; 83540; 83550; 83605; 83735; 84443; 85025; 85027; 85610; 85730; 93005; 96361; 96374; 99291; A9270; J1644; J3411; J3475; J7030; J7060; J7070; J7121

== ENCOUNTER 2021-06-19 13:57 | Emergency (ER) | payer OTHER, SELFPAY ==
--- NOTE | ~2021-06-19 | CT_ITS ---
EXAMINATION: CT brain wo con DATE: 06/19/2021 15:55 INDICATION: Speech deficit. Confusion. TECHNIQUE: Computed tomography (CT) of the head was performed without intravenous contrast. The mA wa s adjusted according to patient size. Iterative reconstruction technique was employed. The dose-lengt h product was 605.33 mGy-cm. COMPARISON: Head CT 11/15/2020 FINDINGS: There are scattered areas of low attenuation in the cerebral white matter. There is no intr acranial hemorrhage, acute infarction, or abnormal intracranial mass lesion. The ventricles are bernie l in size. There is an old blowout fracture of medial wall of left orbit. There is mild mucosal thick ening in the paranasal sinuses. The mastoid air cells are normal. There is right posterior superior s calp soft tissue swelling. IMPRESSION: 1. Stable mild nonspecific cerebral white matter disease, which likely represents chronic small vesse l ischemic disease. Reviewed, dictated and finalized at location E. BOAT OPERATOR IMPRESSION: 1. Stable mild nonspecific cerebral white matter disease, which likely represen ts chronic small vessel ischemic disease.
--- NOTE | ~2021-06-19 | CT_ITS ---
EXAMINATION: CT cervical spine wo con DATE: 06/19/2021 15:55 INDICATION: Head injury. TECHNIQUE: Computed tomography (CT) of the cervical spine was performed without intravenous contrast. Automated exposure control and iterative reconstruction technique were employed. The dose-length pro duct was 510.43 mGy-cm. COMPARISON: CT cervical spine 01/05/2019 FINDINGS: There is a trace left mastoid effusion. There is 17 degrees levoscoliosis of cervical thora cic spine. There is developmental anterior and posterior fusion at C2-C3. Vertebral body heights are normal. There is developmental anterior and posterior fusion at C7-T1. There is severely decreased di sc height from C3-C4 through C6-C7 with endplate remodeling. The following disc levels are specifical ly discussed: C2-C3: There is no uncovertebral joint hypertrophy. There is no facet joint hypertrophy. There is no neural foraminal stenosis. There is no central canal stenosis. C3-C4: There is severe bilateral uncovertebral joint osteoarthritis. There is severe bilateral facet joint osteoarthritis. There is moderate bilateral neural foraminal stenosis. There is mild central ca nal stenosis. C4-C5: There is severe right and moderate left uncovertebral joint osteoarthritis. There is mild righ t and severe left facet joint osteoarthritis. There is moderate right and mild left neural foraminal stenosis. There is mild central canal stenosis. C5-C6: There is severe right and mild left uncovertebral joint osteoarthritis. There is mild bilatera l facet joint osteoarthritis. There is moderate right and mild left neural foraminal stenosis. There is mild central canal stenosis. C6-C7: There is severe bilateral uncovertebral joint osteoarthritis. There is moderate right and mild left facet joint osteoarthritis. There is moderate right and mild left neural foraminal stenosis. Th ere is mild central canal stenosis. C7-T1: There is no uncovertebral joint hypertrophy. There is no facet joint hypertrophy. There is no neural foraminal stenosis. There is no central canal stenosis. IMPRESSION: 1. No fracture. 2. Severe cervical spondylosis. 3. Cervicothoracic levoscoliosis. Reviewed, dictated and finalized at location E. E REPAIR MECHANIC
[2021-06-19 14:00] VITALS: BP 107/65; PULSE 75; RESP 14; TEMP 36.8; O2SAT 100
[2021-06-19 14:27] LABS: Add Urine Microscopic? NO; Appearance Urine Clear (Clear); Bilirubin Urine Negative (Negative); Blood Urine Negative (Negative); Color Urine Straw (Yellow); Glucose Urine UA Negative (Negative); Ketones Urine Negative (Negative); Leukocyte Esterase Ur Negative LEU/UL (Negative); Nitrate Urine Negative (Negative); Protein Urine Negative (Negative); Specific Grav Ur 1.005 (1.001-1.035); Urobilinogen Urine Negative mg/dL (<2.0)
[2021-06-19 14:31] LABS: Basophils Absolute Auto 0.1 K/mm3 (0.0-0.1); Basophils Percent Auto 0.9 % (0.2-1.2); Eosinophils Absolute Auto 0.1 K/mm3 (0-0.3); Eosinophils Percent Auto 0.7 % (0-4.4); Hematocrit 36.4 % (42.0-52.0); Hemoglobin 10.8 g/dL (14.0-18.0); Immature Granulocyte Absolute 0.03 K/mm3 (0.00-0.031); Immature Granulocyte Percent A 0.4 % (0-0.5); Immature Platelet Fraction Pct 3.3 % (0.9-11.2); Mean Corpuscular HGB Conc 29.7 g/dl (32-36); Mean Corpuscular Hemoglobin 24.5 pg (26-34); Mean Corpuscular Volume 82.5 fl (80-100); Mean Platelet Volume 9.7 fl (7.4-10.4); Monocytes Absolute Auto 0.5 K/mm3 (0.1-0.6); Monocytes Percent Auto 6.6 % (2.6-8.5); Neutrophils Absolute Auto 4.1 K/mm3 (1.3-6.7); Neutrophils Percent Auto 60.4 % (45.5-73.1); Platelet Count Result 325 k/mm3 (150-375); Red Blood Count 4.41 M/mm3 (4.6-6.20); Red Cell Distribution Width 23.5 % (11.5-14.5); White Blood Count 6.8 K/mm3 (4.5-10.0)
[2021-06-19 14:42] LABS: Amphetamine Screen Urine Negative (Negative); Barbiturate Screen Urine Negative (Negative); Benzodiazepines Screen Urine Negative (Negative); Cannabinoid Screen Urine Negative (Negative); Cocaine Screen Urine Negative (Negative); Methadone Screen Urine Negative (Negative); Opiate Screen Urine Negative (Negative); Phencyclidine Screen Urine Negative (Negative)
[2021-06-19 14:49] LABS: Hypochromasia 1+ (NORMAL); Platelet Estimate Adequate (Adequate)
[2021-06-19 14:50] LABS: Anisocytosis 3+ (NORMAL)
--- NOTE | 2021-06-19 14:55 | ED.GENADULT ---
HPI - General Adult General Chief complaint: Alcohol Stated complaint: ETHOL Time Seen by Provider: 06/19/21 14:33 Source: patient, EMS and RN notes reviewed Mode of arrival: EMS History of Present Illness HPI narrative: Patient found facing down on the road, brought to the ED by ambulance. When I went see the patient in the room was awake, alert and oriented x4, telling me that he lives alone, does not work, does not have family, and cannot Take care of himself. Patient does not remember when he ate last. Currently denying any symptoms Related Data Allergies Allergy/AdvReac Type Severity Reaction Status Date / Time Penicillins Allergy Unknown PATIENT Verified 11/15/20 18:59 UNSURE OF REACTION. Review of Systems Review of Systems: CONSTITUTIONAL: Denies fever, chills, or sweats. EYES: Denies visual changes, redness, or discharge. ENT: Denies rhinorrhea, congestion, sore throat, or otalgia. CARDIOVASCULAR: Denies chest pain, palpitations, or edema. RESPIRATORY: Denies cough or dyspnea. GASTROINTESTINAL: Denies abdominal pain, nausea, vomiting, or diarrhea. GENITOURINARY: Denies dysuria or hematuria. SKIN: Denies rash or itching. MUSCULOSKELETAL: Denies back pain, joint pain, or myalgia. NEUROLOGIC: Denies headache, numbness, or weakness. PSYCHIATRIC: Denies anxiety or depression. PMFSH Past Medical History Medical History Bipolar disease, chronic Family History Family History Mother Depression Social History Social History Smoking packs per day: 1 Smoking cigarettes per day: 20.0 Years smoked: 30 Smoking pack-years: 30.00 Smoking status: Current every day smoker Tobacco type: cigarettes Alcohol intake: current Drinks per week: 70 Substance use: never Gender identity (if verbalized by the patient): Male Spiritual care concerns: No Exam Narrative: General appearance: Well-developed, well-nourished Skin: Normal color Head: Normocephalic, nontraumatic Eyes: Clear conjunctiva ENT: Oropharynx normal, ears normal, nose normal Neck: Supple, nontender Chest and respiratory: Airway patent, no respiratory distress, no accessory muscle use Heart: Regular rate/rhythm Abdomen: Soft, nontender, no organomegaly, quiet bowel sounds Vascular: Normal peripheral pulses, normal capillary refill. Musculoskeletal: Normal range of motion, nontender back Neurologic: Alert and oriented ?3, COMPENSATION INTERN is normal as tested, no gross motor deficit, slurred speech Course Course Emergency Course: Stable Vital Signs Vital signs: Vital Signs Temperature 36.8 C 06/19/21 14:00 Pulse Rate 75 06/19/21 14:00 Respiratory Rate 14 06/19/21 14:00 Blood Pressure 107/65 06/19/21 14:00 Pulse Oximetry 100 06/19/21 14:00 Temperature 36.8 C 06/19/21 14:00 Pulse Rate 72 06/19/21 16:00 Respiratory Rate 22 H 06/19/21 16:00 Blood Pressure 110/71 06/19/21 16:00 Pulse Oximetry 99 06/19/21 16:00 Medical Decision Making MDM Narrative Medical decision making narrative: Patient came to the emergency room by ambulance, intoxicated. Labs, banana bag, ordered. Further plan to follow Differential Diagnosis Differential Diagnosis: Alcohol intoxication, depression, electrolyte imbalance, rhabdomyolysis, intracranial injury Vital Signs Vital Signs: Vital Signs Temperature 36.8 C 06/19/21 14:00 Pulse Rate 75 06/19/21 14:00 Respiratory Rate 14 06/19/21 14:00 Blood Pressure 107/65 06/19/21 14:00 Pulse Oximetry 100 06/19/21 14:00 Temperature 36.
[2021-06-19 15:11] LABS: Creatine Kinase 168 U/L (55-170)
[2021-06-19 15:15] LABS: Ethanol 321 mg/dL (<10)
[2021-06-19 15:33] LABS: Prothrombin Time 13.1 Seconds (11.1-14.7)
[2021-06-19] MEDS: THIAMINE HCL INJ 100 MG, FOLIC ACID INJ 1 MG, MULTIVITAMINS-12 INJ VIAL 1 5 ML, MULTIVI... 1000 MG IV CONT (15:33)
[2021-06-19 16:00] VITALS: BP 110/71; PULSE 72; RESP 22; O2SAT 99
[2021-06-19 16:15] LABS: Alanine Aminotransferase 40 U/L (4-50); Albumin Level 4.5 g/dL (3.5-5.1); Alkaline Phosphatase 111 U/L (38-126); Anion Gap 14 mmol/L (8-16); Aspartate Amino Transferase 48 U/L (17-59); Bilirubin,Total 0.2 mg/dL (0.2-1.3); Blood Urea Nitrogen 12 mg/dL (9-20); Calcium 9.7 mg/dL (8.4-10.2); Carbon Dioxide 19 mmol/L (22-30); Chloride 107 mmol/L (98-107); Estimated Glomerular Filt Rate > 60; Glucose 88 mg/dL (65-110); Potassium 4.3 mmol/L (3.4-5.0); Sodium 140 mmol/L (137-145)
[2021-06-19 16:45] VITALS: BP 126/78; PULSE 74; RESP 17; O2SAT 100
[2021-06-19 16:45] LABS: Thyroid Stimulating Hormone 0.337 uIU/mL (0.465-4.680)
--- NOTE | 2021-06-19 17:30 | PC.NURSE ---
care coordination at pt. bedside. provided pt. with rehab information.
[2021-06-19 18:05] VITALS: BP 113/69; PULSE 84; RESP 19; O2SAT 97
--- NOTE | 2021-06-19 18:17 | PCCCNOTE ---
Met with patient at bedside. He states that lives alone and has a brother that lives locally that he texts and talks to daily. Patient states that he is able to care for himself, states that he is able to do all ADLS and uses the bus for transportation around town. He does not drive due to dui's. Patient drinks daily and states that he has been in 11 rehabs and he will not go back. He has an AA sponsor but hasn't spoken with him recently but speaks highly of him. Patient requests to call brother, patient uses care coordinators phone but unable to reach his brother but left him a message. Patient is up and eating dinner at this time. Patient states that he has to walk about 25 [address] [place] [address] [place]. Provided him with printed resources and printed resources for AA meetings and discussed with patient and circled which ones that would take his insurance. Updated bedside RN. When patient is discharged requested bedside RN try to call brother again for transportation but if unable to reach provided a cab voucher to his home.
--- NOTE | 2021-06-19 19:00 | PC.NURSE ---
called [employer] to supervisor picking crew pt.
== END 2021-06-19 19:00 | disposition home or self-care (01) ==
PROVIDERS: Emergency Medicine; Emergency Provider Family Medicine; PCP Internal Medicine
DX: F10.10 Alcohol abuse, uncomplicated (principal); R63.8 Other symptoms and signs concerning food and fluid intake; F31.9 Bipolar disorder, unspecified; Y90.8 Blood alcohol level of 240 mg/100 ml or more; F17.210 Nicotine dependence, cigarettes, uncomplicated; M47.812 Spondylosis without myelopathy or radiculopathy, cervical region; R90.82 White matter disease, unspecified
CPT/HCPCS: 36415; 51701; 70450; 72125; 80053; 80307; 81003; 82550; 84443; 85025; 85055; 85610; 96365; 99285; J3411; J3475; J7030